=== PATIENT | male | born 1990 | race Caucasian/White ===

== ENCOUNTER 2018-05-27 22:32 | Emergency (ER) | payer OTHER, MEDICAID, SELFPAY ==
[2018-05-27 23:06] VITALS: BP 103/66; PULSE 106; RESP 18; TEMP 36.6; O2SAT 98; BMI 22.4
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
[2018-05-27 23:45] VITALS: BP 103/66; PULSE 106; RESP 18; TEMP 36.6; O2SAT 98; BMI 22.4
[2018-05-28 01:28] VITALS: BP 114/65; PULSE 78; RESP 14; O2SAT 99
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
== END 2018-05-28 01:29 | disposition home or self-care (01) ==
PROVIDERS: Emergency Provider Emergency Medicine; Family Provider Family Medicine; PCP Family Medicine
DX: M23.90 Unspecified internal derangement of unspecified knee (principal)
CPT/HCPCS: 73562; 99283

== ENCOUNTER 2025-02-18 12:42 | Emergency (ER) | payer OTHER, SELFPAY ==
[2025-02-18 12:47] VITALS: BP 118/74; PULSE 92; RESP 18; TEMP 36.6; O2SAT 98; BMI 23.6
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
[2025-02-18] MEDS: PROPARACAINE 0.5% OPHTH SOL 1 DROPS EYE-LEFT (13:12)
[2025-02-18] MEDS: FLUORESCEIN 1 MG STRIP EYE-LEFT (13:12)
[2025-02-18 14:14] VITALS: BP 116/43; PULSE 90; RESP 16; O2SAT 99
== END 2025-02-18 14:05 | disposition home or self-care (01) ==
PROVIDERS: Emergency Provider Physician Assistant; Family Provider Family Medicine; PCP Family Medicine
DX: T15.12XA Foreign body in conjunctival sac, left eye, initial encounter (principal); W44.8XXA Other foreign body entering into or through a natural orifice, initial encounter
CPT/HCPCS: 65205; 99282

== ENCOUNTER 2025-05-13 20:19 | Emergency (ER) | payer OTHER, SELFPAY ==
[2025-05-13 20:23] VITALS: BP 113/72; PULSE 82; RESP 18; TEMP 37.1; O2SAT 96; BMI 25.1
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
[2025-05-13 23:09] VITALS: PULSE 65; O2SAT 97
[2025-05-13 23:10] VITALS: BP 114/56; PULSE 66; RESP 16; O2SAT 97
[2025-05-13] MEDS: TET,DIPH,PERTUSS(ACELL),VAC/PF 0.5 ML SYRINGE IM (23:18)
[2025-05-13] MEDS: BACITRACIN OINT 0.9 GM PCKT 1 APPLIC TOP (23:19)
== END 2025-05-13 23:27 | disposition home or self-care (01) ==
PROVIDERS: Emergency Provider Emergency Medicine; Family Provider Family Medicine; PCP Family Medicine
DX: S81.012A Laceration without foreign body, left knee, initial encounter (principal); S80.02XA Contusion of left knee, initial encounter; S50.11XA Contusion of right forearm, initial encounter; S80.01XA Contusion of right knee, initial encounter; S50.312A Abrasion of left elbow, initial encounter; S50.812A Abrasion of left forearm, initial encounter; S80.211A Abrasion, right knee, initial encounter; S50.811A Abrasion of right forearm, initial encounter; M25.462 Effusion, left knee; S90.31XA Contusion of right foot, initial encounter; V29.99XA Rider (driver) (passenger) of other motorcycle injured in unspecified traffic accident, initial encounter; Z23 Encounter for immunization
CPT/HCPCS: 73562; 90471; 99283; 90715